=== PATIENT | female | born 1995 | race Caucasian/White ===

== ENCOUNTER 2018-08-04 20:07 | Emergency (ER) | payer OTHER ==
[~2018-08-04] VITALS: Ht 160 cm; Wt 64.0 kg
[2018-08-04 20:30] VITALS: BP 120/79; PULSE 124; RESP 18; Ht 160 cm; Wt 64.0 kg
[2018-08-04] MEDS ORDERED: KETOROLAC 30 MG INJ IM STA (21:34)
[2018-08-04] MEDS ORDERED: HYDR-4011 PO (23:02)
[2018-08-04] MEDS ORDERED: IBUP-1542 PO (23:02)
--- NOTE | 2018-08-05 07:28 | ERD ---
ER Documentation Chief Complaint Chief Complaint right foot/ankle d/t fall HPI 23-year-old female presents for right foot and ankle pain status post fall last night. He states that she was stepping off a curb and may have twisted her ankle patient did present to urgent care and was told that her x-ray was negative. However she was not provided with any medication or crutches. No other complaints. ROS All systems reviewed and are negative except as per history of present illness. Medications Home Meds Active Scripts Ibuprofen* (Ibuprofen*) 600 Mg Tablet, 600 MG PO Q6H PRN for PAIN, #30 TAB Prov:TROY MORRIS DO 08/04/18 Hydrocodone/Acetaminophen ([place] 5-325 Tablet) 1 Each Tablet, 1 TAB PO Q6H PRN for PAIN, #10 TAB Prov:TROY MORRIS DO 08/04/18 Allergies Allergies: Coded Allergies: codeine (Verified Allergy, Unknown, 08/04/18) PMhx/Soc Hx Neurological Disorder: Yes (epilepsy) Hx Miscellaneous Medical Probl: Yes Hx Alcohol Use: Yes (socially) Hx Substance Use: No Hx Tobacco Use: No Smoking Status: Current every day smoker Physical Exam Vitals Vital Signs Date Temp Pulse Resp B/P (MAP) Pulse Ox O2 O2 Flow FiO2 Time Delivery Rate 08/04/18 99.9 124 18 120/79 97 20:30 (93) Physical Exam Const: No acute distress Resp: Clear to auscultation bilaterally Cardio: Regular rate and rhythm, no murmurs, bilateral dorsalis pedis pulses intact Abd: Soft, non tender, non distended. Normal bowel sounds Skin: No petechiae or rashes Back: No midline or flank tenderness Ext: Right ankle swelling noted Neur: Awake and alert, bilateral upper and lower extremity sensation intact Psych: Normal Mood and Affect Results 24 hrs Laboratory Tests Test 08/04/18 22:03 POC Beta HCG, Qualitative NEGATIVE Current Medications Medications Dose Sig/Ana María Start Time Status Last (Trade) Ordered Route PRN Stop Time Admin Dose Reason Admin Ketorolac 30 mg ONCE STAT 08/04/18 DC 08/04/18 Tromethamine IM 21:34 22:13 (Toradol) 08/04/18 21:36 Procedures/MDM Medical Decision Making: Differential diagnosis includes but not limited to right ankle fracture, d islocation, ligamentous sprain Patient appeared well on physical exam. The right ankle was swollen on physical examination. Patient given Toradol in the ER with relief of symptoms. Right ankle and right foot x-ray were unremarkable Patient likely has a right ankle sprain. Given the amount of pain she was having an Iggy wrap was applied patient was given crutches. Patient given prescription for Motrin and [place] short course low-dose. Patient advised to follow up with PCP in 1-2 days. Patient advised to return to ED for new or worsening symptoms. Patient stable on discharge from the ED. The patient has been prescribed [place] during this encounter. The patient has been warned about the use of narcotics. The patient should not drive or operate heavy machinery while taking this medication. The patient was also warned about the addictive properties of narcotic medications. [Narcan prescription was NOT provided given the following criteria 1. No more than 5 tablets of [place] 10 mg or 10 tablets of [place] 5 mg were prescribed. 2. Concomitant opiate and benzodiazepine prescriptions were not provided. 3. There is no obvious evidence of prior history of opiate abuse or overdose.] Disclaimer: Inadvertent spelling and grammatical errors are likely due to EHR/dictation software use and do not reflect on the overall quality of patient care. Also, please note that the electronic time recorded on this note does not necessarily reflect the actual time of the patient encounter. Departure Diagnosis: Primary Impression: Injury of foot Condition: Fair Patient Instructions: Sprain Foot Referrals: [facility] YOU HAVE RECEIVED A MEDICAL SCREENING EXAM AND THE RESULTS INDICATE THAT YOU DO NOT HAVE A CONDITION THAT REQUIRES URGENT TREATMENT IN THE EMERGENCY DEPARTMENT. FURTHER EVALUATION AND TREATMENT OF YOUR CONDITION CAN WAIT UNTIL YOU ARE SEEN IN YOUR DOCTORS OFFICE WITHIN THE NEXT 1-2 DAYS. IT IS YOUR RESPONSIBILITY TO MAKE AN APPOINTMENT FOR FOLOW-UP CARE. IF YOU HAVE A PRIMARY DOCTOR --you should call your primary doctor and schedule an appointment IF YOU DO NOT HAVE A PRIMARY DOCTOR YOU CAN CALL OUR PHYSICIAN REFERRAL HOTLINE AT IF YOU CAN NOT AFFORD TO SEE A PHYSICIAN YOU CAN CHOSE FROM THE FOLLOWING [facility] [address] [facility] [address] [facility] [place] [facility] [address] [facility] [facility] [place] [address] [facility]. [facility]. [address] Additional Instructions: Call your primary care doctor TOMORROW for an appointment during the next 1-2 days.See the doctor sooner or return here if your condition worsens before your appointment time. elevated right foot ice as needed for pain pain medications as needed TROY MORRIS DO Aug 05, 2018 07:28
== END 2018-08-04 23:51 | disposition left against medical advice (07) ==
LOC: FTE 20:07
DX: S99.921A Unspecified injury of right foot, initial encounter (principal); F17.210 Nicotine dependence, cigarettes, uncomplicated; W19.XXXA Unspecified fall, initial encounter; Y92.9 Unspecified place or not applicable
CPT/HCPCS: 73610; 73630; 81025; 96372; 99284; J1885